=== PATIENT | male | born 1960 | race Caucasian/White ===

== ENCOUNTER 2017-11-11 21:39 | Emergency (ER) | payer OTHER ==
[~2017-11-11] VITALS: Ht 182.9 cm; Wt 79.4 kg
[2017-11-11] MEDS ORDERED: FLUOXETINE HCL40 MG PO (22:02)
[2017-11-11] MEDS ORDERED: HUMALOG100 UNITS/ IV (22:03)
[2017-11-11] MEDS ORDERED: ALPRAZOLAM0.25 MG PO (22:03)
== END 2017-11-11 23:24 | disposition home or self-care (01) ==
LOC: ED 21:39
DX: T85.694A Other mechanical complication of insulin pump, initial encounter (principal); E11.65 Type 2 diabetes mellitus with hyperglycemia; F41.9 Anxiety disorder, unspecified; Z79.899 Other long term (current) drug therapy
CPT/HCPCS: 99282